=== PATIENT | male | born 1985 | race Caucasian/White ===

== ENCOUNTER 2017-08-13 13:00 | Emergency (ER) | payer OTHER ==
[~2017-08-13] VITALS: Ht 172.7 cm; Wt 83.9 kg
[2017-08-13 13:22] VITALS: BP 156/86
[2017-08-13] MEDS ORDERED: SODIUM CHLORIDE 0.9% 1,000 ML IVB ONE (13:26)
[2017-08-13 13:54] LABS: Basophils # (auto) 0 uL; Basophils % (auto) 0.4 % (0.0-2.0); Eosinophils # (auto) 0 uL; Hematocrit 50.6 % (41.0-53.0); Lymphocytes # (auto) 0.7 uL; Lymphocytes % (auto) 10.5 % (10.0-50.0); Mean Corpuscular Hgb Conc. 33.7 g/dL (32.0-36.0); Monocytes # (auto) 0.1 uL; Monocytes % (auto) 2.2 % (0.0-12.0); Neutrophils # (auto) 5.5 uL; Neutrophils % (auto) 86.9 % (37.0-80.0); Nucleated Red Blood Cells % 0.1 %; Platelet Count (auto) 242 10^3/uL (140-450); Red Blood Cells 5.33 10^6/uL (4.5-5.90); Red Cell Distribution Width 12.7 % (11.8-14.3); White Blood Cell 6.3 10^3/uL (4.4-10.8)
[2017-08-13 14:32] LABS: Albumin 5.1 g/dL (3.4-5.0); BUN/Creatinine Ratio 11.5; Bilirubin, Total 0.5 mg/dL (0.2-1.0); Calcium 9.2 mg/dL (8.5-10.1); Magnesium 2.4 mg/dL (1.6-2.6); Potassium 4.4 mmol/L (3.5-5.1); Total Protein 8.7 g/dL (6.4-8.2)
[2017-08-13 15:04] LABS: Acetaminophen < 2.0 ug/mL (10-30); Salicylate < 1.7 mg/dL (2.8-20.0)
== END 2017-08-13 15:27 | disposition home or self-care (01) ==
LOC: ER 13:00 → EDBD 13:00 → ER 15:27
DX: F10.120 Alcohol abuse with intoxication, uncomplicated (principal)
CPT/HCPCS: 36415; 80053; 80320; 80329; 83735; 85025; 94761